=== PATIENT | female | born 2005 | race Caucasian/White ===

== ENCOUNTER 2025-07-31 21:05 | Emergency (ER) | payer SELFPAY ==
[2025-07-31 21:07] VITALS: BMI 25.6
[2025-07-31 21:14] VITALS: BP 128/82
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
[2025-07-31 22:56] VITALS: BP 125/82
== END 2025-07-31 22:58 | disposition home or self-care (01) ==
LOC: EMR 21:05
PROVIDERS: EMERGENCY PHYSICIAN Emergency Medicine
DX: Z04.1 Encounter for examination and observation following transport accident (principal); V89.2XXA Person injured in unspecified motor-vehicle accident, traffic, initial encounter; Y92.410 Unspecified street and highway as the place of occurrence of the external cause
CPT/HCPCS: 99283; 71046